=== PATIENT | female | born 1955 | race Caucasian/White ===

== ENCOUNTER 2016-05-29 12:30 | Emergency (ER) | payer BC, MEDICARE ==
[2016-05-29 12:53] VITALS: TEMP 98.4; BMI 22.4
--- NOTE | 2016-05-29 15:37 | EDPRACDOC ---
- General Information Chief Complaint: Generalized Weakness Stated Complaint: LEGS SWELLING; BACK PAIN Time Seen by Provider: 05/29/16 14:53 Information Source: Patient, Family Home Medications: Home Medications Glimepiride 2 mg PO QAM 02/21/16 Potassium Chloride 10 meq PO DAILY 02/21/16 Carbamazepine [Carbamazepine ER] 400 mg PO BID 05/29/16 Clotrimazole 1 gm TOP DIR PRN 05/29/16 Folic Acid 1 mg PO 1200 05/29/16 Furosemide [Lasix] 20 mg PO DAILY #7 tablet 05/29/16 Gabapentin 300 mg PO BID 05/29/16 Multivitamins,Therapeutic [Thera] 1 tab PO 1200 05/29/16 Nicotine [Nicoderm Cq] 1 pat TOP QHS 05/29/16 Pantoprazole Sodium [Protonix] 40 mg PO DAILY 05/29/16 Thiamine [Thiamine, Vitamin B-1] 100 mg PO 1200 05/29/16 Allergies/Adverse Reactions: Allergies Allergy/AdvReac Type Severity Reaction Status Date / Time No Known Allergies Allergy Verified 05/29/16 12:51 - History of Present Illness Onset: last night HPI: PT PRESENTS AFTER A FALL WITH PAIN TO PELVIS WITH WORSENING LEG SWELLING ACUTE ON CHRONIC. SHE HAS HISTORY OF CHF WITH REPORTED EF OF 30% BUT DENIES BEING ON A DIURETIC. SHE ALSO REPORTS SOME ASSOCIATED DYSPNEA. ED Past Medical History - History Reviewed Yes Nurses notes reviewed and agree except as marked - Patient Medical History Cardiac History: Reports: Congestive Heart Failure, Cardiac Catheterization ( 2013) GI/ History: Reports: Gastroesophageal Reflux Psychological History: Reports: Depression Systemic History: Reports: Diabetes Surgical History: Reports: Cholecystectomy, Cardiac Catheterization (2013). Denies: Hysterectomy - Social Medical History Smoking Status: Former smoker Lives With: Family Lives In: Home EDM Review of Systems - Review of Systems ROS Negative Except as Marked: Yes All systems reviewed and were negative except as marked Constitutional: Fatigue. negative: Fever Respiratory: Shortness of Breath Cardiovascular: Edema. negative: Chest Pain, Syncope Gastrointestinal: negative: Nausea, Pain, Vomiting Musculoskeletal: Back (SACRAL/PELVIS) - Physical Exam Constitutional: Alert Oriented to: Time, Person, Place Last recorded Vital Signs: Last Vital Signs Temp 98.4 F 05/29/16 14:55 Pulse 87 05/29/16 14:55 Resp 20 05/29/16 14:55 BP 118/67 05/29/16 14:55 Pulse Ox 100 05/29/16 14:55 Oxygen Pulse Oxygen Saturation 100 O2 Device Room Air Oxygen Flow Rate Fraction of Inspired Oxygen ( FIO2) - HEENT Head: negative: Deformity, Laceration Eye Exam: negative: Conjunctival Injection, Pale Conjunctiva Oropharynx: negative: Membranes Dry Nose: negative: Congestion, Discharge Neck: negative: Limited ROM - Respiratory/Cardiovascular Respiratory: Normal - CTA. negative: Accessory Muscle Use, Diminished, Tachypnea Cardiovascular: negative: Bradycardia, Tachycardia, Irregular - GI Auscultation: Normal Palpation: Normal Tenderness: Non tender - Musculoskeletal Extremities: Pedal Edema (3+ BILATERAL), Pedal Pulse (PALPABLE), Radial Pulse ( PALPABLE). negative: Calf Tenderness - Integumentary Skin: Warm, Dry - Neurologic Memory Impaired: Normal Motor Function: Normal Mood Description: Anxious Thought: Coherent Perception: Normal - Re-evaluation Re-evaluation 1 Re-evaluation Time: 16:25 AFTER NURSING ATTEMPTED BLOOD DRAW PATIENT BECAME UPSET AND REFUSED FURTHER ATTEMPTS. SHE DEMANDS DISCHARGE. SPOKE WITH HER ABOUT THE RISKS OF THIS AND SHE CONTINUES TO REFUSE FURTHER TREATMENT OR EVALUATION. MOTHER AND AUNT ARE IN THE ROOM WITH HER DURING THIS DISCUSSION. - EKG EKG #1 EKG Time: 15:21 -: Yes EKG interpreted by me Rate: bpm: 84 Clare: LAD Rhythm: NSR Block: None ST: Nonsp Decision Time to Discharge: 16:26 - Departure Yes I personally saw and evaluated the patient. Disposition: AMA Condition: Stable Final Diagnosis: Leg swelling Instructions: Edema (ED) Education/Counseling Given To: Patient, Family Member Education/Counseling Given Regarding: Diagnosis, Treatment, Prognosis, Follow Up Referrals: Israel Kennedy II, MD [Primary Care Provider] - Call for Appointment Prescriptions: Furosemide [Lasix] 20 mg PO DAILY #7 tablet
--- NOTE | 2016-05-29 16:05 | DIRPT ---
CLINICAL DATA: Pain following fall EXAM: PELVIS - 1-2 VIEW COMPARISON: None. FINDINGS: There is no evidence of pelvic fracture or dislocation. There is mild symmetric narrowing of both hip joints. There is a stimulator with the tips overlying the superior sacral ala bilaterally. IMPRESSION: No fracture or dislocation. Mild symmetric narrowing both hip joints. Electronically Signed By: Kristian Reyes III, M.D. On: 05/29/2016 16:02
--- NOTE | 2016-05-29 16:06 | DIRPT ---
CLINICAL DATA: Status post fall today. Initial encounter. EXAM: CHEST 2 VIEW COMPARISON: PA and lateral chest 01/05/2015. Single view of the chest 05/04/2016. FINDINGS: The lungs are clear. There is cardiomegaly. No pneumothorax or pleural effusion. The patient is status post vertebral augmentation at the thoracolumbar junction. IMPRESSION: Cardiomegaly without acute disease. Electronically Signed By: Pranay Patterson M.D. On: 05/29/2016 16:03
[2016-05-29 16:46] VITALS: BP 134/72; PULSE 96
== END 2016-05-29 16:44 | disposition left against medical advice (07) ==
LOC: ED 12:30 → UNDOADMOB 14:45 → ICU 14:45 → ED 16:44
DX: M79.89 Other specified soft tissue disorders (principal); I50.9 Heart failure, unspecified; K21.9 Gastro-esophageal reflux disease without esophagitis; E11.9 Type 2 diabetes mellitus without complications; Z79.899 Other long term (current) drug therapy
CPT/HCPCS: 71020; 72170; 93005; 99284

== ENCOUNTER 2016-06-12 15:06 | Emergency (ER) | payer BC, MEDICARE ==
[2016-06-12 15:07] VITALS: BMI 22.4
[2016-06-12 15:40] VITALS: TEMP 97.7
[2016-06-12] MEDS ORDERED: REGULAR INSULIN 100 UNITS/ML - 3 ML VIAL SQ ONE (15:46)
--- NOTE | 2016-06-12 15:49 | EDPRACDOC ---
- General Information Chief Complaint: Headache Stated Complaint: BARRERA Time Seen by Provider: 06/12/16 15:47 Information Source: News Clerk Mode Of Arrival: Ambulance Home Medications: Home Medications Glimepiride 4 mg PO QAM 02/21/16 Potassium Chloride 10 meq PO DAILY 02/21/16 Carbamazepine [Carbamazepine ER] 400 mg PO BID 05/29/16 Clotrimazole 1 gm TOP DIR PRN 05/29/16 Folic Acid 1 mg PO 1200 05/29/16 Furosemide [Lasix] 20 mg PO DAILY #7 tablet 05/29/16 Gabapentin 300 mg PO TID 05/29/16 Multivitamins,Therapeutic [Thera] 1 tab PO 1200 05/29/16 Nicotine [Nicoderm Cq] 1 pat TOP QHS 05/29/16 Pantoprazole Sodium [Protonix] 40 mg PO DAILY 05/29/16 Thiamine [Thiamine, Vitamin B-1] 100 mg PO 1200 05/29/16 Glimepiride [Amaryl] 2 mg PO .QPM 06/12/16 Allergies/Adverse Reactions: Allergies Allergy/AdvReac Type Severity Reaction Status Date / Time No Known Allergies Allergy Verified 05/29/16 12:51 - History of Present Illness Onset: this morning HPI: diabetic with dementia from home, transported for c/o BARRERA which is unusual for her, new diagnosis of CHF started on lasix. no fevers or emesis reported . PT unable to provide any reliable history, denies any BARRERA at this time. level 5 caveat family presented bedside, states she falls frequently and most recently fell 2 days in the bathroom, no LOC. Location: Reports: Other (unk) Relevant History of: Denies: Known Headache disorder Associated Signs and Symptoms: Denies: Loss of Consciousness, Seizures, Stiff Neck ED Past Medical History - History Reviewed Yes Nurses notes reviewed and agree except as marked - Patient Medical History Cardiac History: Reports: Congestive Heart Failure, Cardiac Catheterization ( 2013) GI/ History: Reports: Gastroesophageal Reflux Psychological History: Reports: Depression Systemic History: Reports: Diabetes Surgical History: Reports: Cholecystectomy, Cardiac Catheterization (2013). Denies: Hysterectomy - Social Medical History Smoking Status: Never smoker EDM Review of Systems - Review of Systems ROS Negative Except as Marked: Yes All systems reviewed and were negative except as marked - Physical Exam Constitutional: Alert (Awake), No apparent distress Oriented to: Person Last recorded Vital Signs: Last Vital Signs Temp 97.7 F 06/12/16 15:30 Pulse 85 06/12/16 15:30 Resp 18 06/12/16 15:30 BP 144/71 06/12/16 15:30 Pulse Ox 95 06/12/16 15:30 Oxygen Pulse Oxygen Saturation 95 O2 Device Room Air Oxygen Flow Rate Fraction of Inspired Oxygen ( FIO2) - HEENT Head: Normal ( normocephalic) Eye Exam: Normal (PERRL, EOMI, Sclera white) Oropharynx: Normal (Pharynx:Moist without exudate,Gums-no swelling) Neck: Normal (FROM, trachea at midline). negative: Meningeal Signs - Respiratory/Cardiovascular Respiratory: Normal - CTA (BBS clear to auscultation without adventitious sounds ) Cardiovascular: Normal (RRR without murmur, gallop or rub) - GI Auscultation: Normal (NABS) Palpation: Normal (Soft,No rebound or guarding, non distended) Tenderness: Non tender Ball's Sign: Negative - Musculoskeletal Back: Normal (Non-Tender) Extremities: Normal (Normal tone, Pulses 2+ No cyanosis or edema, FROM), Other ( 1 plus BLE pittiung edema) - Integumentary Skin: Normal, Warm, Dry Lymphatics: Normal (no adenopathy) - Neurologic Motor Function: Normal (Normal tone, Pulses 2+ No cyanosis or edema, FROM) Cranial Nerve: Normal (CN II-X11 intact sensation, strength 5/5) Cerebellar: Normal - Re-evaluation Re-evaluation 1 Re-evaluation Time: 16:31 (d/w FAM, NSG has been paged for traumatic SDH. no blood thinners.very limited exam. family reports inc confusion and dementia symptoms. will plan transfer. ) - Results 06/12/16 15:45 06/12/16 15:45 - EKG EKG #1 EKG Time: 16:33 -: Yes EKG interpreted by me Rate: bpm: 88 Drake: Normal Rhythm: NSR Block: None Hypertrophy: None ST: Nonsp - Diagnostic Imaging Head Image interpreted by: EXAM: CT HEAD WITHOUT CONTRAST TECHNIQUE: Contiguous axial images were obtained from the base of the skull through the vertex without intravenous contrast. COMPARISON: None. FINDINGS: Acute broad-based cerebral subdural hematoma is seen which measures approximately 9 mm in greatest thickness in the left parietal region. There is also subdural hematoma seen along the tentorium in the right posterior cerebellar hemisphere. There is mild [id number]-ddgda midline shift measuring approximately 5 mm. No evidence of intraparenchymal hemorrhage, brain edema, or other signs of acute infarct. No evidence of intraventricular hemorrhage or hydrocephalus. Mild cerebral atrophy and chronic small vessel disease noted. No evidence of skull fracture. IMPRESSION: Acute broad-based left cerebral subdural hematoma, as well as small amount of subdural blood along the tentorium and right posterior cerebellar hemisphere. Mild [id number]-kt-[id number] midline shift measuring approximately 5 mm. Critical Value/emergent results were called by telephone at the time of interpretation on 06/12/2016 at 4:[address] MAXIM SMITH MD, who verbally acknowledged these results. Electronically Signed By: Israel Eugene M.D. On: 06/12/2016 16:10 - Departure Final Diagnosis: Accidental fall, SDH (subdural hematoma) Referrals: None,No Provider [NonStaff] - One Week Prescriptions: No Action Potassium Chloride 10 meq PO DAILY Glimepiride 4 mg PO QAM Thiamine [Thiamine, Vitamin B-1] 100 mg PO 1200 Nicotine [Nicoderm Cq] 1 pat TOP QHS Pantoprazole Sodium [Protonix] 40 mg PO DAILY Folic Acid 1 mg PO 1200 Clotrimazole 1 gm TOP DIR PRN PRN Reason: DIAPER RASH Multivitamins,Therapeutic [Thera] 1 tab PO 1200 Gabapentin 300 mg PO TID Carbamazepine [Carbamazepine ER] 400 mg PO BID Furosemide [Lasix] 20 mg PO DAILY #7 tablet Glimepiride [Amaryl] 2 mg PO .QPM - Physician Consulted Other Time Called: 16:47 (d/w Dr Freeman at [facility], accepts in Tx to ED)
[2016-06-12 16:05] LABS: AUTOMATED BASOPHIL 1.4 % (0-2); AUTOMATED EOSINOPHIL 1.1 % (0-5); AUTOMATED LYMPH 25.3 % (17-44); AUTOMATED MONOCYTE 9.6 % (3-10); AUTOMATED NEUTROPHIL 62.6 % (45-76); MPV 10.6 fL (7.4-10.4)
[2016-06-12 16:10] LABS: LEUKOCYTES/URINE 2+ (NEGATIVE); NITRITE/URINE NEG (NEGATIVE); RBC/URINE 20-30 (0-5); URINE OCCULT BLOOD NEG (NEG/TRACE)
--- NOTE | 2016-06-12 16:16 | DIRPT ---
CLINICAL DATA: Altered mental status. Headache. EXAM: CT HEAD WITHOUT CONTRAST TECHNIQUE: Contiguous axial images were obtained from the base of the skull through the vertex without intravenous contrast. COMPARISON: None. FINDINGS: Acute broad-based cerebral subdural hematoma is seen which measures approximately 9 mm in greatest thickness in the left parietal region. There is also subdural hematoma seen along the tentorium in the right posterior cerebellar hemisphere. There is mild lqbb-wm-eqjay midline shift measuring approximately 5 mm. No evidence of intraparenchymal hemorrhage, brain edema, or other signs of acute infarct. No evidence of intraventricular hemorrhage or hydrocephalus. Mild cerebral atrophy and chronic small vessel disease noted. No evidence of skull fracture. IMPRESSION: Acute broad-based left cerebral subdural hematoma, as well as small amount of subdural blood along the tentorium and right posterior cerebellar hemisphere. Mild vmli-qv-ezoib midline shift measuring approximately 5 mm. Critical Value/emergent results were called by telephone at the time of interpretation on 06/12/2016 at 4:[address] MAXIM SMITH MD, who verbally acknowledged these results. Electronically Signed By: Israel Eugene M.D. On: 06/12/2016 16:10
[2016-06-12 16:27] LABS: BLOOD UREA NITROGEN 15 MG/DL (7-17); CALC CORRECTED 9.5 MG/DL (8.4-10.2); CALCIUM 8.2 MG/DL (8.4-10.2); CALCULATED OSMOLALITY 272 MOs/Kg (270-290); CHLORIDE 107 mEq/L (98-107); GLUCOSE 305 MG/DL (70-99); SODIUM LEVEL 135 mEq/L (137-146); TOTAL PROTEIN 6.2 G/DL (6.3-8.2)
--- NOTE | 2016-06-12 16:31 | DIRPT ---
CLINICAL DATA: Shortness of Breath EXAM: CHEST 2 VIEW COMPARISON: 05/29/2016 FINDINGS: Cardiac shadow is enlarged. Increased vascular congestion and mild interstitial edema is noted. No focal infiltrate or sizable effusion is seen. No bony abnormality is noted. IMPRESSION: Increased vascular congestion and interstitial edema. Electronically Signed By: Shyam Juan M.D. On: 06/12/2016 16:28
[2016-06-12 17:19] VITALS: BP 158/79; PULSE 90
--- NOTE | 2016-06-12 17:23 | DIRPT ---
CLINICAL DATA: Fall. Subdural hematoma. EXAM: CT CERVICAL SPINE WITHOUT CONTRAST TECHNIQUE: Multidetector CT imaging of the cervical spine was performed without intravenous contrast. Multiplanar CT image reconstructions were also generated. COMPARISON: 05/04/[address] FINDINGS: No fracture is detected in the cervical spine. No prevertebral soft tissue swelling. There is straightening of the cervical spine, usually due to positioning and/or muscle spasm. Dens is well positioned between the lateral masses of C1. The lateral masses appear well-aligned. Moderate degenerative disc disease in the mid to lower cervical spine. Wrvn-[id number]-[id number] facet arthropathy bilaterally in the cervical spine. No significant cervical foraminal stenosis. No cervical spine subluxation. Visualized mastoid air cells appear clear. Acute extra-axial hemorrhage is seeing layering along the periphery of the visualized right posterior fossa. No gross cervical canal hematoma. Moderate centrilobular emphysema and diffuse interlobular septal thickening is seen at the lung apices. Partially visualized are bilateral pleural effusions. No cervical adenopathy or other significant neck soft tissue abnormality. IMPRESSION: 1. No fracture or subluxation in the cervical spine. 2. Re- demonstration of acute extra-axial hemorrhage in the right posterior fossa, please see head CT report from earlier today for further detail. 3. Moderate degenerative changes in the cervical spine. 4. Diffuse interlobular septal thickening at the lung apices, probably representing pulmonary edema. Bilateral pleural effusions, partially visualized. Moderate centrilobular emphysema. Electronically Signed By: Jim Mcbride M.D. On: 06/12/2016 17:20
== END 2016-06-12 17:20 | disposition short-term general hospital (02) ==
LOC: ED 15:06
DX: S06.5X0A Traumatic subdural hemorrhage without loss of consciousness, initial encounter (principal); W19.XXXA Unspecified fall, initial encounter; Y93.9 Activity, unspecified
CPT/HCPCS: 36415; 70450; 71020; 72125; 80053; 81001; 83605; 83880; 85025; 87040; 87086; 93005; 96372; 99283; J3490